=== PATIENT | female | born 1995 | race Caucasian/White ===

== ENCOUNTER 2017-06-30 01:05 | Inpatient (IN) | payer OTHER ==
[2017-06-30 02:02] LABS: URINE APPEARANCE CLOUDY; URINE BILIRUBIN NEGATIVE (NEGATIVE); URINE BLOOD NEGATIVE (NEGATIVE); URINE COLOR YELLOW; URINE GLUCOSE (UA) NEGATIVE (NEGATIVE); URINE KETONE 2+ (NEGATIVE); URINE LEUK ESTERASE TRACE (NEGATIVE); URINE NITRITE NEGATIVE (NEGATIVE); URINE UROBILINOGEN NEGATIVE mg/dL (0.2-1.0)
[2017-06-30 02:04] LABS: URINE PROTEIN 1+ (NEGATIVE)
[2017-06-30 02:06] LABS: URINE BACTERIA MODERATE /hpf (NONE SEEN); URINE MUCUS MANY; URINE RBC 4 /hpf (0-3); URINE WBC 5 /hpf (3-5)
--- NOTE | 2017-06-30 02:25 | PDOC ---
History of Present Illness - General Chief Complaint: Pain Stated Complaint: ABDOMINAL PAIN Time Seen by Provider: 06/30/17 01:37 History Source: Patient Exam Limitations: No Limitations - History of Present Illness Travel History: No Initial Comments: 06/30/17 02:43 22-year-old female with no medical history presents to the emergency department complaining of right lower quadrant/right upper quadrant abdominal discomfort times approximately 2 months. Pain is described as 5/10 nonradiating intermittent discomfort. There are no exacerbating or alleviating factors. Patient states she came to the emergency department this evening because the pain was a 3/10 over the past 2 months which increased to a 5/10 this evening. Patient denies fever, chills, nausea/vomiting, chest pain, shortness of breath, flank pains, urinary symptoms: Frequency/urgency/hesitancy, hematuria. Timing/Duration: reports: intermittent Quality: reports: mild Abdominal Pain Onset Location: reports: RUQ, RLQ Pain Radiation: reports: no radiation Past History - Past Medical History Allergies/Adverse Reactions: Allergies Allergy/AdvReac Type Severity Reaction Status Date / Time No Known Allergies Allergy Verified 06/30/17 01:12 Home Medications: Ambulatory Orders NK [No Known Home Medication] 06/30/17 Other medical history: denies - Immunization History Immunization Up to Date: Yes - Suicide/Smoking/Psychosocial Hx Smoking Status: No Smoking History: Never smoked Have you smoked in the past 12 months: No Number of Cigarettes Smoked Daily: 0 Hx Alcohol Use: No Drug/Substance Use Hx: No Review of Systems - Review of Systems Able to Perform ROS?: Yes Comments:: 06/30/17 02:43 CONSTITUTIONAL: Absent: fever, chills, diaphoresis, generalized weakness, malaise, loss of appetite HEENT: Absent: rhinorrhea, nasal congestion, throat pain, throat swelling, difficulty swallowing, mouth swelling, ear pain, eye pain, visual Changes CARDIOVASCULAR: Absent: chest pain, loss of consciousness, palpitations, irregular heart rate, peripheral edema RESPIRATORY: Absent: cough, shortness of breath, dyspnea with exertion, orthopnea, wheezing, stridor, hemoptysis GASTROINTESTINAL: +RLQ/RUQ pain Absent: abdominal distension, nausea, vomiting, diarrhea, constipation, melena, hematochezia GENITOURINARY: Absent: dysuria, frequency, urgency, hesitancy, hematuria, flank pain, genital pain MUSCULOSKELETAL: Absent: myalgia, arthralgia, joint swelling SKIN: Absent: rash, itching, pallor HEMATOLOGIC/IMMUNOLOGIC: Absent: easy bleeding, easy bruising, lymphadenopathy, frequent infections ENDOCRINE: Absent: unexplained weight gain, unexplained weight loss, heat intolerance, cold intolerance NEUROLOGIC: Absent: headache, focal weakness or paresthesias, dizziness, unsteady gait, seizure, mental status changes, bladder or bowel incontinence PSYCHIATRIC: Absent: anxiety, depression, suicidal or homicidal ideation, hallucinations. Is the patient limited Belgian proficient: No *Physical Exam - Vital Signs Last Vital Signs Temp Pulse Resp BP Pulse Ox 98.7 F 91 H 18 133/79 99 06/30/17 01:10 06/30/17 01:10 06/30/17 01:10 06/30/17 01:10 06/30/17 01:10 - Physical Exam Comments: 06/30/17 02:43 GENERAL: Well developed, well nourished. Awake and alert. No acute distress. HEENT: Normocephalic, atraumatic. PERRLA, EOMI. No conjunctival pallor. Sclera are non- icteric. Moist mucous membranes. Oropharynx is clear. NECK: Supple. Full ROM. No JVD. Carotid pulses 2+ and symmetric, without bruits. No thyromegaly. No lymphadenopathy. CARDIOVASCULAR: Regular rate and rhythm. No murmurs, rubs, or gallops. Distal pulses are 2+ and symmetric. PULMONARY: No evidence of respiratory distress. Lungs clear to auscultation bilaterally. No wheezing, rales or rhonchi. ABDOMINAL: Soft. Non-tender. Non-distended. No rebound or guarding. No organomegaly. Normoactive bowel sounds. MUSCULOSKELETAL Normal range of motion at all joints. No bony deformities or tenderness. No CVA tenderness. EXTREMITIES: No cyanosis. No clubbing. No edema. No calf tenderness. SKIN: Warm and dry. Normal capillary refill. No rashes. No jaundice. NEUROLOGICAL: Alert, awake, appropriate. Cranial nerves 2-12 intact. No deficits to light touch and temperature in face, upper extremities and lower extremities. No motor deficits in the in face, upper extremities and lower extremities. Normoreflexic in the upper and lower extremities. Normal speech. Toes are down- going bilaterally. Gait is normal without ataxia. PSYCHIATRIC: Cooperative. Good eye contact. Appropriate mood and affect. ED Treatment Course - LABORATORY CBC & Chemistry Diagram: 06/30/17 02:33 06/30/17 02:33 - ADDITIONAL ORDERS Additional order review: Laboratory Results 06/30/17 01:57 Urine Color Yellow Urine Appearance Cloudy Urine pH 6.0 Urine Protein 1+ H Urine Glucose (UA) Negative Urine Ketones 2+ H Urine Blood Negative Urine Nitrite Negative Urine Bilirubin Negative Urine Urobilinogen Negative Urine HCG, Qual Negative - RADIOLOGY Radiograph Interpretation: 06/30/17 05:47 CT abd/pelvis with po/iv contrast: Acute appendicitis without abscess or free air involuting right ovarian cyst with small to moderate amount of pelvic free fluid. Progress Note - Progress Note Progress Note: 0534hrs: Called Dr. Berlin Griffin/pt's pmd 0602hrs: Called Dr. Araya/admts for Dr. Gurwinder Griffin 0611hrs: Spoke to Dr. Douglas/ will see pt *DC/Admit/Observation/Transfer Diagnosis at time of Disposition: Acute appendicitis Qualifiers: Acute appendicitis type: other Qualified Code(s): K35.89 - Other acute appendicitis - Discharge Dispostion Condition at time of disposition: Stable Admit: Yes - Referrals Referrals: Berlin Griffin MD [Primary Care Provider] -
[2017-06-30 02:40] LABS: BASOPHIL 0.3 % (0-2.0); EOSINOPHIL 0.1 % (0-4.5); MCH 31.7 pg (25.7-33.7); MCHC 33.9 g/dl (32.0-36.0); MEAN CELL VOLUME 93.5 fl (80-96); MEAN PLT VOLUME 9.3 fl (7.5-11.1); NEUTROPHILS 88.6 % (42.8-82.8); PLATELET COUNT 224 K/MM3 (134-434); RDW 12.9 % (11.6-15.6); WHITE BLOOD COUNT 16.3 K/mm3 (4.0-10.0)
[2017-06-30 03:15] LABS: ALBUMIN 4.2 g/dl (3.4-5.0); ALK PHOS 69 U/L (45-117); AMYLASE 40 U/L (25-115); ANION GAP 10 (8-16); BILIRUBIN,TOTAL 0.4 mg/dL (0.2-1.0); CALCIUM 8.9 mg/dL (8.5-10.1); CO2 29 mmol/L (21-32); CREATININE 0.6 mg/dL (0.55-1.02); GLUCOSE,RANDOM 116 mg/dL (74-106); SGOT/AST 12 U/L (15-37); SGPT/ALT 23 U/L (12-78); TOT PROT 7.6 g/dl (6.4-8.2)
[2017-06-30] MEDS ORDERED: cefOXitin SODIUM 2 GM VIAL (RESTRICTED TO ID) IVPB ONE (06:23)
[2017-06-30] MEDS ORDERED: CEFOXITIN SODIUM 1 GM in DEXTROSE 5%-WATER - 100 ML IVPB ONE (06:30)
[2017-06-30 07:12] VITALS: BMI 20.2
[2017-06-30] MEDS ORDERED: LACTATED RINGERS SOLUTION 1,000 ML IV SCH ×3 (09:15→11:34)
[2017-06-30] MEDS ORDERED: ONDANSETRON 4 MG/2 ML VIAL IVPUSH PRN ×2 (09:25→11:34)
[2017-06-30] MEDS ORDERED: PROMETHAZINE HCL 25 MG/1 ML VIAL IVPUSH PRN (09:25)
[2017-06-30] MEDS ORDERED: PROPOFOL 20 ML ONE (09:38)
[2017-06-30] MEDS ORDERED: ROCURONIUM BROMIDE 50 MG/5 ML VIAL ONE (09:38)
[2017-06-30] MEDS ORDERED: MIDAZOLAM HCL 2 MG/2 ML SINGLE DOSE VIAL ONE (09:38)
[2017-06-30] MEDS ORDERED: LIDOCAINE HCL/PF 2% SDV 5ML VIAL ONE (09:40)
[2017-06-30] MEDS ORDERED: ceFAZolin SODIUM 1 GM VIAL IVPB ONE (10:32)
[2017-06-30] MEDS ORDERED: ceFAZolin SODIUM 1 GM VIAL ONE (10:38)
[2017-06-30] MEDS ORDERED: SODIUM CHLORIDE 0.9% P/F 10 ML VIAL IJ ONE (10:38)
[2017-06-30] MEDS ORDERED: DEXAMETHASONE SOD PHOSPHATE 4 MG/1 ML VIAL ONE (10:40)
[2017-06-30] MEDS ORDERED: ONDANSETRON 4 MG/2 ML VIAL ONE ×3 (10:40→19:45)
[2017-06-30] MEDS ORDERED: DESFLURANE GAS 240 ML BOTTLE IH ONE (10:42)
[2017-06-30] MEDS ORDERED: GLYCOPYRROLATE 0.2 MG/1 ML VIAL ONE (10:51)
[2017-06-30] MEDS ORDERED: NEOSTIGMINE METHYLSULFATE 0.5 MG/ML - 10 ML MDV ONE (10:51)
[2017-06-30] MEDS ORDERED: KETOROLAC TROMETHAMINE 30 MG/1 ML VIAL ONE (11:04)
[2017-06-30] MEDS ORDERED: BUPIVACAINE HCL/PF 0.25% (2.5MG/ML) 10 ML VIAL IJ ONE (11:08)
--- NOTE | 2017-06-30 11:20 | OP ---
Operative Note - Note: Operative Date: 06/30/17 Pre-Operative Diagnosis: acute appendicitis Operation: lap. appendectomy Findings: acute appendicittis Post-Operative Diagnosis: Same as Pre-op Surgeon: Deepak Rae Anesthesia: General Specimens Removed: appendix Estimated Blood Loss (mls): 10 Blood Volume Replaced (mls): 10 Fluid Volume Replaced (mls): 200
[2017-06-30] MEDS ORDERED: HYDROmorphone HCL CARPU-JECT 1 MG/1 ML DISP.SYRIN IVPB PRN (11:22)
[2017-06-30] MEDS ORDERED: ACETAMINOPHEN 325 MG TABLET (FP) PO PRN (11:29)
--- NOTE | 2017-06-30 12:19 | OP ---
DATE OF OPERATION: 06/30/2017 PREOPERATIVE DIAGNOSIS: Acute appendicitis. POSTOPERATIVE DIAGNOSIS: Acute appendicitis. PROCEDURE: Laparoscopic appendectomy. FINDINGS: Acute appendicitis. SURGEON: Deepak Rae MD ANESTHESIA: General; Emiliano Carcamo MD COMPLICATIONS: None; bleeding was minimal and patient tolerated the procedure well. INDICATIONS: This is a 22-year-old female who presents with a 2-month history of abdominal pain, worse over the last 24 hours, when she presented to the emergency room for evaluation. A CT scan showed evidence of acute appendicitis with an elevated white count of 16,000, for which surgical evaluation and consultation was obtained. Upon examining the patient and confirming the findings of CT and physical examination, the patient was recommended to undergo a laparoscopic appendectomy. She agreed to proceed as planned. In the operating room, she was placed in supine position. After induction of general anesthesia, she was then prepped and draped in the usual sterile fashion. After a standard timeout, the operation was begun with a paraumbilical incision for approximately 1.5 cm and a standard Diana approach was used to enter the peritoneal cavity without complications. A 12-mm port was introduced at this incision, then insufflation of pressure of 15 mmHg was accomplished. Next, under direct vision, two 5-mm ports were introduced, one in the suprapubic position and one in the patient's left lower quadrant. The appendix was then identified; it was retracted superiorly. It appeared to be inflamed. The mesoappendix was then divided with LigaSure to skeletonize the appendix at the base of the appendix. The base of the appendix was then divided with an EndoGIA blue cartridge. There was some minimal bleeding from the staple line, which was controlled with Endoclips. The right lower quadrant and pelvis were then irrigated and suctioned. The appendix was placed in an EndoCatch bag and removed through the umbilical port. The ports were removed under direct vision. The fascia at the umbilical port was closed with 0 Vicryl sutures in interrupted fashion. The skin was closed with 4-0 Monocryl at all port sites. Dermabond was applied. The patient was returned to the recovery room, awake, alert, in stable condition. She tolerated the procedure well. Sharon [id number]
[2017-06-30] MEDS: LACTATED RINGERS SOLUTION 1,000 ML IV SCH (12:48)
[2017-06-30] MEDS: oxyCODONE HCL 5 MG TABLET PO PRN (15:15)
--- NOTE | 2017-06-30 15:17 | HP ---
Admitting History and Physical - Admission History of Present Illness: Pt is a 22 y/o female w/ no significant PMH who has been rt sided abdominal pain for 1-2 months. However in the past 24 hrs she states that the pain increased and it was associated w/ an episode of vomiting. Pt states taht the pain is now localizeds to RLQ. Pt denies any fever/chills. In the ER pt found to have elevated wbc of 16.[address] scan abd showed acute appendicitis. History Source: Patient - Past Surgical History Past Surgical History: Yes: None - Smoking History Smoking history: Never smoked Have you smoked in the past 12 months: No Aproximately how many cigarettes per day: 0 - Alcohol/Substance Use Hx Alcohol Use: No Home Medications - Allergies Allergies/Adverse Reactions: Allergies Allergy/AdvReac Type Severity Reaction Status Date / Time No Known Allergies Allergy Verified 06/30/17 01:12 - Home Medications Home Medications: Ambulatory Orders NK [No Known Home Medication] 06/30/17 Family Disease History - Family Disease History Family History: Unremarkable Review of Systems - Review of Systems Gastrointestinal: reports: Abdominal Pain, Vomiting Physical Examination Vital Signs: Vital Signs Temperature 97.5 F L 06/30/17 12:46 Pulse Rate 79 06/30/17 12:46 Respiratory Rate 18 06/30/17 12:46 Blood Pressure 115/71 06/30/17 12:46 O2 Sat by Pulse Oximetry (%) 100 06/30/17 12:46 Eyes: Yes: WNL HENT: Yes: WNL, Atraumatic Neck: Yes: WNL, Supple Cardiovascular: Yes: WNL, Regular Rate and Rhythm Respiratory: Yes: WNL, Regular, CTA Bilaterally Gastrointestinal: Yes: Other ((+) incisional tenderness) Problem List - Problems (1) Acute appendicitis Assessment/Plan: S/P lap appy Cont IV antibxs Monitor wbc Cont IVF Advance diet as per surgery Code(s): K35.80 - UNSPECIFIED ACUTE APPENDICITIS Qualifiers: Acute appendicitis type: other Qualified Code(s): K35.89 - Other acute appendicitis; K35.89 - Other acute appendicitis
[2017-06-30] MEDS: LEVOFLOXACIN 500 MG IVPB 100 ML IVPB SCH (16:23)
[2017-06-30] MEDS: METRONIDAZOLE 500 MG PREMIXED 100 ML IVPB SCH (16:23)
[2017-06-30] MEDS: ONDANSETRON 4 MG/2 ML VIAL IVPB PRN (19:52)
[2017-06-30] MEDS: HEPARIN NA (PORCINE) 5,000 UNITS/ML 1ML VIAL SQ SCH (21:08)
[2017-07-01] MEDS: METRONIDAZOLE 500 MG PREMIXED 100 ML IVPB SCH ×3 (02:33→17:45)
[2017-07-01] MEDS: LACTATED RINGERS SOLUTION 1,000 ML IV SCH ×3 (02:34→15:54)
[2017-07-01 07:49] LABS: BASOPHIL 0.1 % (0-2.0); EOSINOPHIL 0.1 % (0-4.5); MCH 31.9 pg (25.7-33.7); MEAN CELL VOLUME 93.9 fl (80-96); MEAN PLT VOLUME 9.6 fl (7.5-11.1); NEUTROPHILS 69.5 % (42.8-82.8); PLATELET COUNT 170 K/MM3 (134-434); RDW 12.4 % (11.6-15.6); WHITE BLOOD COUNT 10.2 K/mm3 (4.0-10.0)
[2017-07-01 08:11] LABS: ALBUMIN 3.1 g/dl (3.4-5.0); ANION GAP 6 (8-16); CALCIUM 8.6 mg/dL (8.5-10.1); CO2 27 mmol/L (21-32); GLUCOSE,RANDOM 77 mg/dL (74-106)
[2017-07-01 08:13] LABS: ALK PHOS 53 U/L (45-117); BILIRUBIN,TOTAL 0.7 mg/dL (0.2-1.0); CREATININE 0.6 mg/dL (0.55-1.02); SGOT/AST 9 U/L (15-37); SGPT/ALT 16 U/L (12-78); TOT PROT 5.9 g/dl (6.4-8.2)
[2017-07-01] MEDS: oxyCODONE HCL 5 MG TABLET PO PRN (09:20)
[2017-07-01] MEDS: HEPARIN NA (PORCINE) 5,000 UNITS/ML 1ML VIAL SQ SCH ×2 (09:21→21:02)
[2017-07-01] MEDS: LEVOFLOXACIN 500 MG IVPB 100 ML IVPB SCH (11:17)
--- NOTE | 2017-07-01 11:31 | PN ---
Progress Note (short form) - Note Progress Note: Anesthesia postop note 22 y/o F s/p GA for laparoscopic appendectomy POD#1, vss, aaox3, pain well controlled. No anesthesia complications.
--- NOTE | 2017-07-01 13:07 | PN ---
Progress Note (short form) - Note Progress Note: POD #1 Alert. Amb[address] hallways unassisted. Voiding spontaneously. States she having intermittent nausea. Denies vomiting, CP or SOB. Last Vital Signs Temp Pulse Resp BP Pulse Ox 98 F 68 18 90/55 99 10 07:04 10 07:04 07/01/17 07:04 07/01/17 07:04 07/01/17 10:57 CBC, BMP 07/01/17 07:00 07/01/17 07:00 Gen: nad Abd: all surgical ports intact. No hematoma. LE: no pain/swelling/edema bilat Problem List - Problems (1) Acute appendicitis Assessment/Plan: POD #1 s/p lap appy Cont to ambulate Zofran for nausea PRN Tylenol for fever > 100.3F Reg diet --> if tolerates can be discharged home today Code(s): K35.80 - UNSPECIFIED ACUTE APPENDICITIS Qualifiers: Acute appendicitis type: other Qualified Code(s): K35.89 - Other acute appendicitis; K35.89 - Other acute appendicitis
[2017-07-01] MEDS: ONDANSETRON 4 MG/2 ML VIAL IVPB PRN (13:51)
--- NOTE | 2017-07-01 19:58 | PN ---
Progress Note, Physician History of Present Illness: Pt still feeling nausea - Current Medication List Current Medications: Active Medications Acetaminophen (Tylenol -) 325 mg PO Q6H PRN PRN Reason: PAIN Last Admin: 06/30/17 15:16 Dose: 325 mg Heparin Sodium (Porcine) (Heparin -) 5,000 unit SQ BID BUDDY Last Admin: 07/01/17 09:21 Dose: 5,000 unit Hydromorphone HCl (Dilaudid Injection -) 1 mg IVPB Q6H PRN PRN Reason: PAIN Last Admin: 07/01/17 00:12 Dose: 1 mg Lactated Ringer's (Lactated Ringers Solution) 1,000 mls @ 100 mls/hr IV ASDIR [facility] Last Admin: 07/01/17 15:54 Dose: 100 mls/hr Metronidazole (Flagyl 500mg Premixed Ivpb -) 100 mls @ 100 mls/hr IVPB Q8H-IV BUDDY Last Admin: 07/01/17 17:45 Dose: 100 mls/hr Levofloxacin (Levaquin 500 Mg Premixed Ivpb -) 100 mls @ 100 mls/hr IVPB DAILY [facility] Last Admin: 07/01/17 11:17 Dose: 100 mls/hr Ondansetron HCl (Zofran Injection) 4 mg IVPB Q6H PRN PRN Reason: NAUSEA AND/OR VOMITING Last Admin: 07/01/17 13:51 Dose: 4 mg Oxycodone HCl (Roxicodone -) 5 mg PO Q6H PRN PRN Reason: PAIN LEVEL 6-10 Last Admin: 07/01/17 09:20 Dose: 5 mg - Objective Vital Signs: Vital Signs Temperature 98.8 F 07/01/17 17:24 Pulse Rate 85 07/01/17 17:24 Respiratory Rate 18 07/01/17 17:24 Blood Pressure 103/68 07/01/17 17:24 O2 Sat by Pulse Oximetry (%) 99 07/01/17 10:57 Constitutional: Yes: No Distress Neck: Yes: WNL, Supple Cardiovascular: Yes: WNL, Regular Rate and Rhythm Respiratory: Yes: WNL, Regular, CTA Bilaterally Gastrointestinal: Yes: Normal Bowel Sounds, Soft, Other ((+) minimal incisional tenderness) Labs: CBC, BMP 07/01/17 07:00 07/01/17 07:00 Problem List - Problems (1) Acute appendicitis Assessment/Plan: S/P lap appy Cont IV antibxs DC planning for am Will change to po antibxs in am Code(s): K35.80 - UNSPECIFIED ACUTE APPENDICITIS Qualifiers: Acute appendicitis type: other Qualified Code(s): K35.89 - Other acute appendicitis; K35.89 - Other acute appendicitis
[2017-07-02] MEDS: METRONIDAZOLE 500 MG PREMIXED 100 ML IVPB SCH ×2 (02:26→12:23)
[2017-07-02] MEDS: LACTATED RINGERS SOLUTION 1,000 ML IV SCH ×2 (04:34→12:23)
[2017-07-02 11:36] VITALS: BP 119/72; PULSE 80; TEMP 98.6
[2017-07-02] MEDS: LEVOFLOXACIN 500 MG IVPB 100 ML IVPB SCH (12:23)
[2017-07-02] MEDS: HEPARIN NA (PORCINE) 5,000 UNITS/ML 1ML VIAL SQ SCH (12:23)
--- NOTE | 2017-07-02 13:45 | PATH ---
Surgical Pathology Report Patient Name: CHERISE EMMANUEL Med. Rec. #: [id number] /Age/Gender: 1995 (Age: 22) / F Account: [id number] Location: [facility] MED/SURG Taken: 07/01/2017 Received: 07/01/2017 Reported: 07/02/2017 Physicians: Deepak Rae M.D. Specimen(s) Received APPENDIX Clinical History Appendicitis Final Diagnosis APPENDIX, APPENDECTOMY: ACUTE APPENDICITIS AND PERIAPPENDICITIS. Electronically Signed Johnathan Sorto M.D. Gross Description Received in formalin, labeled "appendix," is a 9.5 cm. in length vermiform appendix with a stapled margin of resection and moderate attached fat. The serosa is sanchez and smooth. Sectioning reveals a dilated lumen containing brown fecal material. The wall of the appendix averages 0.1 cm. in thickness. Rigging Engineer sections are submitted in one cassette. /07/01/2017 [place]udi07/01/2017
--- NOTE | 2017-07-03 01:39 | DS ---
Physical Examination Vital Signs: Vital Signs Temperature 98.6 F 07/02/17 11:35 Pulse Rate 80 07/02/17 11:35 Respiratory Rate 18 07/02/17 11:35 Blood Pressure 119/72 07/02/17 11:35 O2 Sat by Pulse Oximetry (%) 99 07/01/17 10:57 Labs: CBC, BMP 07/01/17 07:00 07/01/17 07:00 Discharge Summary Reason For Visit: ACUTE APPENDICITIS Condition: Good - Instructions Diet, Activity, Other Instructions: f/u with Dr. Rae in 7-10 days for normal post-operative follow-up. See Dr Griffin in 1 week Regular diet No heavy lifting, report any elevated temp 101 or over, increased pain, or wound drainage to MD Referrals: Berlin Griffin MD [Primary Care Provider] - Deepak Rae [Staff Physician] - Disposition: HOME - Home Medications Comprehensive Discharge Medication List: Ambulatory Orders NK [No Known Home Medication] 06/30/17
== END 2017-07-02 12:53 | disposition home or self-care (01) | DRG 225 ==
LOC: JER 01:05 → J8W 06:08
PROVIDERS: ADMIT Internal Medicine; ATTEND Internal Medicine
PROC: 0DTJ4ZZ Resection of Appendix, Percutaneous Endoscopic Approach (ICD-10-PCS; principal; 2017-06-30 09:30)
DX: K35.80 Unspecified acute appendicitis (principal)
CPT/HCPCS: 36415; 74177-TC; 80053; 81003; 81015; 82150; 83690; 84703; 85025; 88304-TC; 94010; 94760; 99282-25; J1644

== ENCOUNTER 2018-02-19 18:07 | Emergency (ER) | payer OTHER ==
[2018-02-19 18:14] VITALS: BP 142/76; PULSE 99; TEMP 99.5; BMI 28.3
--- NOTE | 2018-02-19 18:15 | PDOC ---
Rapid Medical Evaluation Chief Complaint: Chest Pain Medical Evaluation: Allergies Allergy/AdvReac Type Severity Reaction Status Date / Time No Known Allergies Allergy Verified 02/19/18 18:11 02/19/18 18:11 I have performed a brief in-person evaluation of this patient. The patient presents with a chief complaint of:L upper chest pain w/ numbness of LUE s/p exercising this am. No pmhx and no obvious RF for dvt/pe. Seen at w/ neg EKG (has report on her person showing NSR) Pertinent physical exam findings:stable I have ordered the following:nothing The patient will proceed to the ED for further evaluation. Discharge Disposition - Diagnosis Chest pain Qualifiers: Chest pain type: unspecified Qualified Code(s): R07.9 - Chest pain, unspecified - Referrals - Patient Instructions - Post Discharge Activity
--- NOTE | 2018-02-19 19:26 | PDOC ---
History of Present Illness - General Chief Complaint: Chest Pain Stated Complaint: CHEST PAIN Time Seen by Provider: 02/19/18 18:16 - History of Present Illness Initial Comments: 22-year-old female healthy and active free of any past medical history takes no home medications presents for evaluation of left anterior shoulder pain. She states the pain started about a day or so ago first noticed after she worked out. She points to the anterior lateral aspect of the left shoulder as the area of her discomfort. Her pain is described as achy exacerbated with motion of her head relieved with rest and with radiation down the left arm to the level of the deltoid. 02/19/18 19:20 Past History - Past Medical History Allergies/Adverse Reactions: Allergies Allergy/AdvReac Type Severity Reaction Status Date / Time No Known Allergies Allergy Verified 02/19/18 18:11 Home Medications: Ambulatory Orders Cyclobenzaprine HCl [Flexeril 10 mg] 10 mg PO HS PRN #10 tablet 02/19/18 Ibuprofen [Motrin -] 600 mg PO TID #30 tablet 02/19/18 COPD: No - Immunization History Immunization Up to Date: Yes - Suicide/Smoking/Psychosocial Hx Smoking Status: No Smoking History: Never smoked Have you smoked in the past 12 months: No Number of Cigarettes Smoked Daily: 0 Information on smoking cessation initiated: No Hx Alcohol Use: No Drug/Substance Use Hx: No Substance Use Type: None Review of Systems - Review of Systems Musculoskeletal: Yes: Joint Pain All Other Systems: Reviewed and Negative *Physical Exam - Vital Signs Last Vital Signs Temp Pulse Resp BP Pulse Ox 99.5 F 99 H 16 142/76 100 02/19/18 18:11 02/19/18 18:11 02/19/18 18:11 02/19/18 18:11 02/19/18 18:11 - Physical Exam Comments: Left shoulder skin color and temperature are normal she has full nonpainful range of motion 5 out of 5 strength no evidence of instability negative impingement maneuvers. Cervical spine skin color and temperature are normal. There is full nonpainful range of motion. Mild palpable spasm. Biceps triceps and brachial radialis reflexes are 2+ and symmetric bilaterally. There is 5 out of 5 strength and thumb extension abduction and wrist flexion and extension elbow flexion and extension. 5 out of 5 strength in deltoid. Negative Dante sign. Spurling maneuver is negative on the right positive on the left. There are no gross sensory motor deficits. Neurovascularly intact. 02/19/18 19:21 Medical Decision Making - Medical Decision Making This is most likely a cervical strain. My plan is Motrin and Flexeril. I will get a urine test prior to my disposition of home medications. 02/19/18 19:22 *DC/Admit/Observation/Transfer Diagnosis at time of Disposition: Cervical radiculopathy Chest pain Qualifiers: Chest pain type: unspecified Qualified Code(s): R07.9 - Chest pain, unspecified - Discharge Dispostion Disposition: HOME Condition at time of disposition: Stable Decision to Admit order: No - Referrals Referrals: Berlin Griffin MD [Primary Care Provider] - Martin Newby MD [Staff Physician] - - Patient Instructions Printed Discharge Instructions: DI for Cervical Radiculopathy Additional Instructions: I've called in a muscle relaxer and anti-inflammatory for you. It's important to take anti-inflammatory with food. Return to the emergency room if your symptoms worsen or go unresolved prior to follow-up. I recommended a spine surgeon for further evaluation and treatment options. He should follow-up within 2-3 days. - Post Discharge Activity
== END 2018-02-19 20:08 | disposition home or self-care (01) ==
LOC: JERFT 18:07
DX: M54.12 Radiculopathy, cervical region (principal); R07.9 Chest pain, unspecified
CPT/HCPCS: 84703; 99281-25

== ENCOUNTER 2018-12-17 03:39 | Emergency (ER) | payer OTHER ==
[2018-12-17 05:25] VITALS: BP 114/95; PULSE 95; TEMP 98.4; BMI 21.2
--- NOTE | 2018-12-17 06:15 | PDOC ---
History of Present Illness - General Chief Complaint: Injury Stated Complaint: L FOOT INJURY Time Seen by Provider: 12/17/18 06:02 History Source: Patient - History of Present Illness Initial Comments: 12/17/18 06:22 23-year-old female complaining of twisting left foot and landing on the anterior portion of foot prior to arrival patient reports pain to the third and fourth metatarsal area. No past medical history patient reports pain with weightbearing. No deformity Past History - Past Medical History Allergies/Adverse Reactions: Allergies Allergy/AdvReac Type Severity Reaction Status Date / Time No Known Allergies Allergy Verified 12/17/18 05:25 Home Medications: Ambulatory Orders Cyclobenzaprine HCl [Flexeril 10 mg] 10 mg PO HS PRN #10 tablet 02/19/18 Ibuprofen [Motrin -] 600 mg PO TID #30 tablet 02/19/18 COPD: No - Immunization History Immunization Up to Date: Yes - Suicide/Smoking/Psychosocial Hx Smoking Status: No Smoking History: Never smoked Have you smoked in the past 12 months: No Number of Cigarettes Smoked Daily: 0 Information on smoking cessation initiated: No Hx Alcohol Use: No Drug/Substance Use Hx: No Substance Use Type: None Review of Systems - Review of Systems Able to Perform ROS?: Yes Is the patient limited Swedish proficient: No Musculoskeletal: Yes: Other (left foot pain) *Physical Exam - Vital Signs Last Vital Signs Temp Pulse Resp BP Pulse Ox 98.4 F 95 H 18 114/95 98 12/17/18 03:39 12/17/18 03:39 12/17/18 03:39 12/17/18 03:39 12/17/18 03:39 - Physical Exam General Appearance: Yes: Appropriately Dressed Musculoskeletal: positive: Normal Inspection Extremity: positive: Normal Capillary Refill, Other (left foot no deformity. no edema noted) Integumentary: positive: Normal Color, Dry, Warm Neurologic: positive: Fully Oriented, Alert Moderate Sedation - Procedure Monitoring Vital Signs: Procedure Monitoring Vital Signs Temperature 98.4 F 12/17/18 03:39 Pulse Rate 95 H 12/17/18 03:39 Respiratory Rate 18 12/17/18 03:39 Blood Pressure 114/95 12/17/18 03:39 O2 Sat by Pulse Oximetry (%) 98 12/17/18 03:39 ED Treatment Course - RADIOLOGY Radiology Studies Ordered: Category Date Time Status ANKLE & FOOT-LEFT* [RAD] Stat Radiology 12/17/18 05:25 Taken Progress Note - Progress Note Progress Note: A: foot strain P: hard sole shoe ortho / podiatry follow up RICE *DC/Admit/Observation/Transfer Diagnosis at time of Disposition: Strain of foot, left Qualifiers: Encounter type: initial encounter Qualified Code(s): S96.912A - Strain of unspecified muscle and tendon at ankle and foot level, left foot, initial encounter - Discharge Dispostion Disposition: HOME Condition at time of disposition: Fair - Referrals Referrals: Berlin Griffin MD [Primary Care Provider] - - Patient Instructions Printed Discharge Instructions: DI for Foot Sprain Additional Instructions: rest ice elevate weightbearing as tolerated, follow up with an orthopedic doctor as oon as possible you may take ibuprofen for pain. - Post Discharge Activity Forms/Work/School Notes: Back to Work
--- NOTE | 2018-12-17 06:17 | PDOC ---
*Physical Exam - Vital Signs Last Vital Signs Temp Pulse Resp BP Pulse Ox 98.4 F 95 H 18 114/95 98 12/17/18 03:39 12/17/18 03:39 12/17/18 03:39 12/17/18 03:39 12/17/18 03:39 Medical Decision Making - Medical Decision Making 12/17/18 06:17 Patient seen by the advanced practice provider under my direct supervision. Ancillary testing reviewed as necessary. I agree with plan as outlined by the advanced practice provide *DC/Admit/Observation/Transfer Diagnosis at time of Disposition: Strain of foot, left Qualifiers: Encounter type: initial encounter Qualified Code(s): S96.912A - Strain of unspecified muscle and tendon at ankle and foot level, left foot, initial encounter - Discharge Dispostion Disposition: HOME Condition at time of disposition: Fair - Referrals Referrals: Berlin Griffin MD [Primary Care Provider] - - Patient Instructions Printed Discharge Instructions: DI for Foot Sprain Additional Instructions: rest ice elevate weightbearing as tolerated, follow up with an orthopedic doctor as oon as possible you may take ibuprofen for pain. - Post Discharge Activity Forms/Work/School Notes: Back to Work
== END 2018-12-17 07:00 | disposition home or self-care (01) ==
LOC: JER 03:39
DX: S96.912A Strain of unspecified muscle and tendon at ankle and foot level, left foot, initial encounter (principal); X58.XXXA Exposure to other specified factors, initial encounter; Y93.89 Activity, other specified; Y92.89 Other specified places as the place of occurrence of the external cause
CPT/HCPCS: 73610-TC-LT-FY; 73630-TC-LT; 99281-25

== ENCOUNTER 2021-07-08 15:45 | Emergency (ER) | payer OTHER ==
[2021-07-08 16:13] VITALS: BP 139/83; PULSE 119; TEMP 98.1; BMI 22.3
[2021-07-08] MEDS ORDERED: IBUPROFEN 600 MG TABLET (FP) PO ONE ×2 (17:10→17:49)
== END 2021-07-08 18:13 | disposition home or self-care (01) ==
LOC: JERFT 15:45
DX: S66.912A Strain of unspecified muscle, fascia and tendon at wrist and hand level, left hand, initial encounter (principal); S46.912A Strain of unspecified muscle, fascia and tendon at shoulder and upper arm level, left arm, initial encounter; V03.10XA Pedestrian on foot injured in collision with car, pick-up truck or van in traffic accident, initial encounter
CPT/HCPCS: 99283-25

== ENCOUNTER 2024-03-22 13:58 | Emergency (ER) | payer OTHER ==
[2024-03-22 14:04] VITALS: BP 136/78; PULSE 123; RESP 18; TEMP 97.9; BMI 22.3
[2024-03-22] MEDS ORDERED: ACETAMINOPHEN INJECTION 100 ML IVPB ONE (15:19)
[2024-03-22] MEDS ORDERED: METOCLOPRAMIDE HCL INJECTION 10 MG/2 ML VIAL ONE (15:19)
[2024-03-22] MEDS ORDERED: FAMOTIDINE 20 MG/50 ML IVPB 20 MG/50 ML MG IVPB ONE (15:19)
[2024-03-22 15:20] LABS: BASO % 0.5 % (0-2.0); EOS % 1.5 % (0-4.5); HEMATOCRIT 40.1 % (32.4-45.2); HEMOGLOBIN 13.5 GM/dL (10.7-15.3); LYMPH % 27.1 % (8-40); MCH 32.6 pg (25.7-33.7); MCHC 33.5 g/dl (32.0-36.0); MEAN CELL VOLUME 97.1 fl (80-96); MEAN PLT VOLUME 8.9 fl (7.5-11.1); MONO % 5.2 % (3.8-10.2); NEUT % 65.7 % (42.8-82.8); PLATELET COUNT 226 10^3/uL (134-434); RBC 4.13 M/mm3 (3.60-5.2); RDW 13.2 % (11.6-15.6); VENOUS BASE EXCESS -0.8 mmol/L (-2-2); VENOUS O2 SATURATION 52.8 % (70-80); VENOUS PCO2 46.7 mmHg (38-52); VENOUS PH 7.35 (7.310-7.410); WHITE BLOOD COUNT 6.2 K/mm3 (4.0-10.0)
[2024-03-22] MEDS: ACETAMINOPHEN 1000 MG/100 ML BAG IVPB ONE (15:27)
[2024-03-22] MEDS: FAMOTIDINE 20 MG/50 ML IVPB 20 MG/50 ML MG IVPB ONE (15:28)
[2024-03-22] MEDS: METOCLOPRAMIDE HCL INJECTION 10 MG/2 ML VIAL IVPB ONE (15:28)
[2024-03-22 15:33] LABS: INR 0.94 (0.83-1.09); PROTHROMBIN TIME (PATIENT) 10.6 SEC (9.7-13.0)
[2024-03-22 15:36] LABS: ACTIVATED PTT 31.5 SECONDS (25.2-36.5)
[2024-03-22 15:41] LABS: CALCIUM 9.2 mg/dL (8.5-10.1)
[2024-03-22 15:42] LABS: ALBUMIN 3.7 g/dl (3.4-5.0); BLOOD UREA NITROGEN 6.2 mg/dL (7-18); MAGNESIUM 2.1 mg/dL (1.8-2.4)
[2024-03-22 15:45] LABS: CREATININE 0.7 mg/dL (0.55-1.3)
[2024-03-22 15:46] LABS: BILIRUBIN,TOTAL 0.3 mg/dL (0.2-1); TOT PROT 7.4 g/dl (6.4-8.2)
[2024-03-22 15:50] LABS: N-TERMINAL BNP 32.7 pg/ml (5-125)
[2024-03-22] MEDS: LACTATED RINGERS SOLUTION 1000 ML INFUS.BAG IV ONE (16:30)
[2024-03-22] MEDS ORDERED: KETOROLAC TROMETHAMINE 15 MG/ML VIAL ONE (18:04)
[2024-03-22] MEDS: KETOROLAC TROMETHAMINE 15 MG/ML VIAL IVPUSH ONE (18:09)
== END 2024-03-22 18:10 | disposition home or self-care (01) ==
LOC: JER 13:58
PROC: 3E033GC Introduction of Other Therapeutic Substance into Peripheral Vein, Percutaneous Approach (ICD-10-PCS; principal; 2024-03-22)
PROC: 3E033NZ Introduction of Analgesics, Hypnotics, Sedatives into Peripheral Vein, Percutaneous Approach (ICD-10-PCS; 2024-03-22)
PROC: 3E0333Z Introduction of Anti-inflammatory into Peripheral Vein, Percutaneous Approach (ICD-10-PCS; 2024-03-22)
PROC: 3E033GC Introduction of Other Therapeutic Substance into Peripheral Vein, Percutaneous Approach (ICD-10-PCS; 2024-03-22)
DX: G43.909 Migraine, unspecified, not intractable, without status migrainosus (principal); R00.2 Palpitations; R42 Dizziness and giddiness; R06.02 Shortness of breath; R07.9 Chest pain, unspecified
CPT/HCPCS: 36415; 71045-TC-FY; 71275-TC; 80053; 82803; 83735; 83880; 84443; 84484; 84703; 85025; 85379; 85610; 85730; 86850; 86900; 86901; 93005; 93010; 99285-25; G0480; J0131; Q9967